=== PATIENT | male | born 1955 | race Caucasian/White ===

== ENCOUNTER 2018-01-21 16:42 | Emergency (ER) | payer MEDICARE, OTHER ==
--- NOTE | 2018-01-21 17:56 | UC ---
Hypertension HPI - HPI Summary HPI Summary: 62 YO MALE comes to the clinic today complaining of high blood pressure. 2 weeks ago he was waiting at a pharmacy and he took his blood pressure with a systolic of 180. He repeatedly took his blood pressure with different blood pressure machines and consistently got readings around 160-180. He feels well. No chest pain no shortness of breath no headache. No changes in urine. He has not checked his blood pressure perhaps 20 years prior to this episode. - History of Current Complaint Chief Complaint: UCGeneralIllness Stated Complaint: ELEVATED BLOOD PRESSURE Time Seen by Provider: 01/21/18 17:16 - Allergies/Home Medications Allergies/Adverse Reactions: Allergies Allergy/AdvReac Type Severity Reaction Status Date / Time azithromycin Allergy GI Upset Verified 01/21/18 16:54 PMH/Surg Hx/FS Hx/Imm Hx Previously Healthy: Yes - Surgical History Surgical History: Yes Surgery Procedure, Year, and Place: Left knee arthroscopy and bone chips removed , Right knee bone chip removed . - Family History Known Family History: Positive: Hypertension Negative: Diabetes - Social History Alcohol Use: Occasionally Substance Use Type: None Smoking Status (MU): Never Smoked Tobacco Type: Smokeless Tobacco Review of Systems Constitutional: Negative Skin: Negative Eyes: Negative ENT: Negative Respiratory: Negative Cardiovascular: Negative Gastrointestinal: Negative Genitourinary: Negative Motor: Negative Neurovascular: Negative Musculoskeletal: Negative Neurological: Negative Is Patient Immunocompromised?: No All Other Systems Reviewed And Are Negative: Yes Physical Exam Triage Information Reviewed: Yes Appearance: Well-Appearing, No Pain Distress, Well-Nourished Vital Signs: Initial Vital Signs Temp 98.2 F 01/21/18 16:52 Pulse 76 01/21/18 16:52 Resp 19 01/21/18 16:52 BP 191/102 01/21/18 16:52 Pulse Ox 100 01/21/18 16:52 Vital Signs Reviewed: Yes ENT Exam: Normal Neck exam: Normal Neck: Positive: Supple Respiratory: Positive: Lungs clear, Normal breath sounds, No respiratory distress Cardiovascular: Positive: RRR Abdominal Exam: Normal Musculoskeletal Exam: Normal Musculoskeletal: Positive: No Edema Neurological Exam: Normal Psychological Exam: Normal Skin Exam: Normal Diagnostics - EKG EKG Comments: 17:40 Cardiac Rate: NL - 74 BPM Cardiac Rhythm: Sinus: Normal Ectopy: None ST Segment: Normal Hypertension Course/Dx - Course Course Of Treatment: We'll start on lisinopril 10 mg by mouth. And given the physician referral phone number to establish a primary medical doctor. Recheck sooner with any questions or concerns. - Differential Dx/Diagnosis Provider Diagnoses: HYPERTENSION Discharge - Sign-Out/Discharge Documenting (check all that apply): Patient Departure All imaging exams completed and their final reports reviewed: No Studies - Discharge Plan Condition: Stable Disposition: HOME Prescriptions: Lisinopril TAB* [Prinivil TAB 10 MG*] 10 mg PO DAILY #30 tab Patient Education Materials: Hypertension (ED) Referrals: [facility] [Outside] Additional Instructions: FOLLOW UP WITH YOUR DOCTOR. GET RECHECKED FOR ANY WORSENING OF YOUR CONDITION OR QUESTIONS OR CONCERNS. - Billing Disposition and Condition Condition: STABLE Disposition: Home
[2018-01-21 18:11] VITALS: BP 180/100
[2018-01-21 20:48] LABS: ABS Basophils 0.1 10^3/ul (0-0.2); ABS Eosinophils 0.2 10^3/ul (0-0.6); ABS Lymphocytes 1.5 10^3/ul (1.0-4.8); ABS Monocytes 0.6 10^3/ul (0-0.8); ABS Neutrophils 3.9 10^3/ul (1.5-7.7); ABS Nucleated RBC 0 10^3/ul; Eosinophil % 3.6 % (0-6); Hematocrit 43 % (42-52); Hemoglobin 14.9 g/dl (14.0-18.0); Lymphocyte % 23.9 % (25-47); Mean Corpuscular HGB Conc 34 g/dl (31-36); Mean Corpuscular Hemoglobin 30 pg (27-31); Mean Corpuscular Volume 88 fL (80-94); Mean Platelet Volume 7.3 um3 (7.4-10.4); Nucleated Red Blood Cells % 0.1; Platelet Count 216 10^3/ul (150-450); Red Blood Count 4.92 10^6/ul (4.00-5.40); Red Cell Distribution Width 13 % (10.5-15); White Blood Count 6.3 10^3/ul (3.5-10.8)
== END 2018-01-21 18:19 | disposition home or self-care (01) ==
LOC: UCCORT 16:42
DX: I10 Essential (primary) hypertension (principal); Z88.3 Allergy status to other anti-infective agents
CPT/HCPCS: 36415; 80053; 85025; 93005; 99202; G0463

== ENCOUNTER 2018-07-19 16:54 | Emergency (ER) | payer MEDICARE ==
[2018-07-19 17:06] VITALS: BP 146/81
--- NOTE | 2018-07-19 17:14 | UC ---
Throat Pain/Nasal Remi HPI - HPI Summary HPI Summary: sinus pressure,chest congestion and cough x2 weeks. States he has had a low grade temp of 100.0 occasionally. - History of Current Complaint Chief Complaint: UCGeneralIllness Stated Complaint: CONGESTION Time Seen by Provider: 07/19/18 17:12 Hx Obtained From: Patient Onset/Duration: Gradual Onset, Lasting Weeks Severity: Moderate Pain Intensity: 0 Cough: Productive Associated Signs & Symptoms: Positive: Wheezing, Sinus Discomfort, Nasal Discharge, Fever - Allergies/Home Medications Allergies/Adverse Reactions: Allergies Allergy/AdvReac Type Severity Reaction Status Date / Time azithromycin Allergy GI Upset Verified 07/19/18 17:07 erythromycin base Allergy GI Upset Verified 07/19/18 17:07 PMH/Surg Hx/FS Hx/Imm Hx Previously Healthy: Yes - Surgical History Surgical History: Yes Surgery Procedure, Year, and Place: Left knee arthroscopy and bone chips removed , Right knee bone chip removed . - Family History Known Family History: Positive: Hypertension Negative: Diabetes - Social History Alcohol Use: Occasionally Substance Use Type: None Smoking Status (MU): Never Smoked Tobacco Type: Smokeless Tobacco Review of Systems All Other Systems Reviewed And Are Negative: Yes Constitutional: Positive: Fever Skin: Positive: Negative Eyes: Positive: Negative ENT: Positive: Sore Throat, Nasal Discharge, Sinus Congestion, Sinus Pain/ Tenderness Respiratory: Positive: Cough Cardiovascular: Positive: Negative Gastrointestinal: Positive: Negative Genitourinary: Positive: Negative Motor: Positive: Negative Neurovascular: Positive: Negative Musculoskeletal: Positive: Negative Neurological: Positive: Headache Psychological: Positive: Negative Is Patient Immunocompromised?: No Physical Exam Triage Information Reviewed: Yes Appearance: Well-Nourished, Ill-Appearing, Pain Distress Vital Signs: Initial Vital Signs Temp 98.2 F 07/19/18 17:04 Pulse 84 07/19/18 17:04 Resp 17 07/19/18 17:04 BP 146/81 07/19/18 17:04 Pulse Ox 99 07/19/18 17:04 Eye Exam: Normal ENT: Positive: Pharyngeal erythema - with PND, Nasal congestion, Nasal drainage , TM bulging, Sinus tenderness Dental Exam: Normal Neck exam: Normal Respiratory Exam: Normal Respiratory: Positive: Chest non-tender, No respiratory distress, No accessory muscle use, Wheezing, Inspiration Cardiovascular Exam: Normal Abdominal Exam: Normal Bowel Sounds: Positive: Present Musculoskeletal Exam: Normal Neurological Exam: Normal Psychological Exam: Normal Skin Exam: Normal Throat Pain/Nasal Course/Dx - Course Course Of Treatment: hx obtained, exam performed ,meds reviewed, treated for sinusitis - Differential Dx/Diagnosis Differential Diagnosis/HQI/PQRI: Laryngitis, Otitis Media, Pharyngitis, Sinusitis Provider Diagnosis: Sinusitis, Wheezing Discharge - Sign-Out/Discharge Documenting (check all that apply): Patient Departure All imaging exams completed and their final reports reviewed: No Studies - Discharge Plan Condition: Stable Disposition: HOME Prescriptions: Amoxicillin PO (*) [Amoxicillin 875 MG (*)] 875 mg PO BID #20 tab predniSONE TAB* [Deltasone 20 MG TAB*] 40 mg PO DAILY #14 tab Patient Education Materials: Sinusitis (ED) Referrals: Sheyla Parks DO [Primary Care Provider] - Additional Instructions: 1. take the medication as prescribed. 2. Salt water gargles and warm fluids to help the throat 3. Advil and tylenol of headache and fever. 4. Follow up as needed. - Billing Disposition and Condition Condition: STABLE Disposition: Home
== END 2018-07-19 17:37 | disposition home or self-care (01) ==
LOC: UCCORT 16:54
DX: J32.9 Chronic sinusitis, unspecified (principal); R06.2 Wheezing; Z88.1 Allergy status to other antibiotic agents
CPT/HCPCS: 99212; G0463